=== PATIENT | female | born 1975 | race Caucasian/White ===

== ENCOUNTER → 2020-02-16 | Outpatient (CLI) | payer OTHER ==
--- NOTE | 2020-02-16 11:06 | MR ---
EXAMINATION TYPE: MR lumbar spine wo/w con DATE OF EXAM: 02/16/2020 COMPARISON: 09/17/2015 HISTORY: Low back pain into legs CONTRAST: 6.5 mL of gadolinium this TECHNIQUE: T1 and T2 axial and sagittal, postcontrast T1 axial and sagittal images of the lumbar spi ne are submitted. FINDINGS: There is no abnormal signal seen within the visualized spinal cord or paraspinal soft tissu es. Alignment is anatomic and there are no compression deformities. Indeterminate subcentimeter bilat eral renal lesions greater on the right. Stable nonspecific mild heterogeneity to the marrow signal d iffusely. At L1-2 there is no disc herniation or canal stenosis. No foraminal encroachment. At L2-3 there is no disc herniation or canal stenosis. No foraminal encroachment. Mild hypertrophic c hange of the facets. At L3-4 there is broad-based disc bulging with mild effacement of thecal sac. Mild hypertrophic lunsford e of the ligamentum flavum and facets. No Canal stenosis. Neural foramina remain patent. At L4-5 there is broad-based disc central bulging with mild effacement of thecal sac. Advanced facet arthropathy and ligamentum flavum hypertrophy with mild bilateral foraminal encroachment. Borderline canal stenosis. At L5-S1 there is no evidence of canal stenosis, disc herniation or foraminal encroachment. IMPRESSION: 1. Broad-based disc bulging centrally L3-L4 and L4-L5 with mild effacement of thecal sac. Facet arthr opathy and ligamentum flavum hypertrophy at both levels with borderline canal stenosis at L4-L5 and m ild bilateral foraminal encroachment. Mild progression from prior exam. 2. Indeterminate subcentimeter right renal lesion. Follow-up ultrasound recommended. 3. Tiny linear area of signal within the distal spinal cord may represent a prominent central canal. Minimal syrinx not excluded, findings stable from prior exam.
== END | disposition home or self-care (01) ==
LOC: RADMRIMAIN 09:30
PROVIDERS: ATTEND Psychiatry & Neurology Neurology
DX: M48.061 Spinal stenosis, lumbar region without neurogenic claudication (principal); M51.16 Intervertebral disc disorders with radiculopathy, lumbar region; M47.26 Other spondylosis with radiculopathy, lumbar region; M46.06 Spinal enthesopathy, lumbar region; R93.7 Abnormal findings on diagnostic imaging of other parts of musculoskeletal system
CPT/HCPCS: 72158

== ENCOUNTER 2020-04-05 08:43 | Day surgery (SDC) | payer OTHER ==
[~2020-04-05 08:43] MED LIST: LACTATED RINGERS 1,000 ML IV SCH
[2020-04-05 09:34] VITALS: RESP 16; TEMP 98.2
[2020-04-05] MEDS ORDERED: LIDOCAINE 1% (10MG/ML) FOR IV START INTRADERMA ONE (09:40)
[2020-04-05] MEDS ORDERED: methylPREDNISolone ACETATE 40 MG/ML 1 ML VIAL ONE (10:49)
[2020-04-05] MEDS ORDERED: ROPIVACAINE 5MG/ML 20ML VIAL ONE (10:49)
[2020-04-05] MEDS ORDERED: MIDAZOLAM 2 MG/2 ML VIAL ONE (10:49)
[2020-04-05] MEDS ORDERED: fentaNYL (PF) 50 MCG/ML 2 ML AMP ONE (10:49)
--- NOTE | 2020-04-05 11:04 | P.PCN ---
Date of Procedure: 04/05/20 Procedure(s) Performed: Procedure= Right sacroiliac joints steroid injection under fluoroscopy guidance (fluoroscopy image stored on file in the radiology Department ) Preoperative diagnosis= 1-sacroiliitis 2-lumbar degenerative disc disease Postoperative diagnosis=Same as preop Diagnosis . Complication = none Condition= stable Anesthesia= moderate sedation with intravenous Versed 2 mg , and fentanyl 100 micrograms . Indication for the procedure= patient complaining of low back pain , examination was positive for severe tenderness over the sacroiliac joints bilaterally and patient diagnosed with sacroiliitis, for this reason he/ she was good candidate for sacroiliac joint steroid injection. Description of the procedure= procedure risk and benefits discussed with the patient, including but not limited, risk of infection and bleeding, and ALLERGIC reaction to the medication and not complete pain relief and patient agreed with the preceding patient taken to the operating room, placed in prone position or standard monitors applied to the patient then after induction of anesthesia back prepped with chlorhexidine 3 times , Then under strict sterile technique, I did the right sacroiliac joint the which was identified under fluoroscopy guidance been local infiltration of the skin and subcu interstitial with lidocaine 1% then 22-gauge Quincke Needle advanced slowly under fluoroscopy and placed in the right sacroiliac joint needle placement confirmed with AP and oblique and lateral view and after appropriate needle placement confirmed and after negative aspiration, or heme , then Ropivacaine 0.5% 3 mL, and 80 mg of Depo-Medrol mixed together and injected in the right sacroiliac joint after negative aspiration patient tolerated the procedure well without any complication.
[2020-04-05] MEDS ORDERED: IV FLUID CONTINUATION 1,000 ML IV ONE (11:07)
[2020-04-05 11:27] VITALS: BP 129/79; PULSE 80
--- NOTE | 2020-04-05 11:48 | FL ---
EXAMINATION TYPE: FL guided pain mgmt statistic DATE OF EXAM: 04/05/2020 CLINICAL HISTORY: Right sacroiliac joint pain. TECHNIQUE: Fluoroscopy. COMPARISON: None. FINDINGS: Fluoroscopic guidance was provided during pain relief procedure performed by Dr. Javier . A total of 1 seconds of fluoroscopic time was utilized during the procedure and 1 spot images are acquired. Single limited acquired shows needle localization at level of right sacroiliac joint infer iorly. IMPRESSION: As Above.
== END 2020-04-05 11:45 | disposition home or self-care (01) ==
LOC: ORPAIN 08:43
PROVIDERS: ATTEND Specialist
DX: M46.1 Sacroiliitis, not elsewhere classified (principal); M51.36 Other intervertebral disc degeneration, lumbar region; Z88.5 Allergy status to narcotic agent
CPT/HCPCS: 81025; J2250; J1030; J3010; J2795; G0260; 27096

== ENCOUNTER → 2020-05-11 | Outpatient (CLI) | payer OTHER ==
[2020-05-11 08:26] VITALS: BP 131/84; PULSE 97; RESP 18; TEMP 97.8
--- NOTE | 2020-05-11 08:41 | P.PN ---
Subjective Progress Note Date: 05/11/20 Courtney is a 45 year old female presents for follow-up today secondary to right- sided low back pain. She reports axial low back pain along the right buttock and upper thigh. She recently had an SI joint injection about 6 weeks ago and reports excellent relief. She reports the pain began to come back over the last 1-2 weeks. She did have a difficult standing for long periods of time and bending over at work secondary to the pain. She's been working 8-12 hour shifts and is having difficulty standing for longer than 8 hours. She denies any side effects from the injection. She denies any significant radicular symptoms into the legs. She denies any weakness in legs. Denies any bowel or bladder incontinence, chest pain, shortness of breath Objective - Vital Signs Vital signs: Vital Signs Temp 97.8 F 05/11/20 08:22 Pulse 97 05/11/20 08:22 Resp 18 05/11/20 08:22 BP 131/84 05/11/20 08:22 Pulse Ox 100 05/11/20 08:22 Intake & Output 05/10/20 05/11/20 05/11/20 18:59 06:59 18:59 Weight 64.41 kg - Exam General: Awake and alert oriented 3 no distress Respiratory exam: No audible wheezing no accessory muscle usage Cervical spine: Normal alignment, Spurling's negative, facet loading negative, Corporate Trust Officer strength is 5/5, pack negative Lumbar spine: Loss of lumbar lordosis, normal alignment, tender to palpation over bilateral paraspinal muscles, facet loading is positive bilaterally. Straight leg raise is negative. Limited range of motion due to pain with flexion, extension and side bending. Sacroiliac joints: Tender palpation of the right SI joint, gains on's test positive, Isaías's test positive Neuro exam: Normal sensation in bilateral upper extremities, deep tendon reflexes are 2+ bilateral upper extremities. Normal sensation in bilateral lower extremities. Deep tendon reflexes are 2+ in lower extremities Psych exam: Cooperative, appropriate mood Assessment and Plan Assessment: #1 sacroiliitis Plan: After discussion with the patient and examination the patient, believe she would benefit from a second SI joint injection. She may benefit from long-term radio frequency ablation of the joint. She may also benefit from SI joint fusion in the future if the joint injections are not lasting long. I discussed this with the patient. She'll follow-up with Dr. Goodman jolly as well. We'll schedule her for a second injection to be done as soon as possible. I will also give her work restriction she can work only 8 hours in a day for the next few months time. The note will on 08/11/2020 I have spent 29 minutes on patient care today. The time was used to review the medical records including relevant urine studies and Prescription history (MAPs), review of the available imaging, evaluation and examination of the patient, coordination of care with the medical staff and if applicable referring physicians, as well as creation of the medical record.
== END ==
LOC: PNWHC3 08:04
PROVIDERS: ATTEND Hospitalist
DX: M46.1 Sacroiliitis, not elsewhere classified (principal)
CPT/HCPCS: 99211

== ENCOUNTER 2020-05-31 13:02 | Day surgery (SDC) | payer OTHER ==
[2020-05-26 11:56] VITALS: BMI 26.8
[2020-05-31 13:16] VITALS: TEMP 98.3
[2020-05-31] MEDS ORDERED: methylPREDNISolone ACETATE 40 MG/ML 1 ML VIAL ONE (13:23)
[2020-05-31] MEDS ORDERED: ROPIVACAINE 5MG/ML 20ML VIAL ONE (13:23)
--- NOTE | 2020-05-31 13:36 | P.PCN ---
Date of Procedure: 05/31/20 Procedure(s) Performed: Procedure= Right sacroiliac joints steroid injection under fluoroscopy guidance (fluoroscopy image stored on file in the radiology Department ) Preoperative diagnosis= 1-sacroiliitis 2-lumbar degenerative disc disease Postoperative diagnosis=Same as preop Diagnosis . Complication = none Condition= stable Anesthesia= local andopivacaine 0.5 % 3 ml only. Indication for the procedure= patient complaining of low back pain , examination was positive for severe tenderness over the right sacroiliac joints bilaterally and patient diagnosed with sacroiliitis, for this reason she was good candidate for sacroiliac joint steroid injection. Description of the procedure= procedure risk and benefits discussed with the patient, including but not limited, risk of infection and bleeding, and ALLERGIC reaction to the medication and not complete pain relief and patient agreed with the preceding patient taken to the operating room, placed in prone position or standard monitors applied to the patient then after induction of anesthesia back prepped with chlorhexidine 3 times , Then under strict sterile technique, I did the right sacroiliac joint the which was identified under fluoroscopy guidance been local infiltration of the skin and subcu interstitial with lidocaine 1% then 25-gauge Quincke Needle advanced slowly under fluoroscopy and placed in the right sacroiliac joint needle placement confirmed with AP and oblique and lateral view and after appropriate needle placement confirmed and after negative aspiration, or heme , then Ropivacaine 0.5% 4 mL, and 40 mg of Depo-Medrol mixed together and injected in the right sacroiliac joint after negative aspiration patient tolerated the procedure well without any complication.
[2020-05-31 13:40] VITALS: BP 161/86; PULSE 99; RESP 20
--- NOTE | 2020-05-31 15:39 | FL ---
EXAMINATION TYPE: FL guided pain mgmt statistic DATE OF EXAM: 05/31/2020 CLINICAL HISTORY: Right sacroiliac joint pain. TECHNIQUE: Fluoroscopy. COMPARISON: None. FINDINGS: Fluoroscopic guidance was provided during right sacroiliac joint pain relief procedure per formed by Dr. Javier . A total of 1 seconds of fluoroscopic time was utilized during the procedure and 1 spot images are acquired. Single image acquired shows needle localization at inferior right s acroiliac joint level. IMPRESSION: As Above.
== END 2020-05-31 13:52 | disposition home or self-care (01) ==
LOC: ORPAIN 13:02
PROVIDERS: ATTEND Specialist
DX: M46.1 Sacroiliitis, not elsewhere classified (principal); M53.3 Sacrococcygeal disorders, not elsewhere classified; Z88.5 Allergy status to narcotic agent
CPT/HCPCS: 81025; J1030; J2795; G0260; 27096

== ENCOUNTER → 2020-08-01 | Outpatient (CLI) | payer OTHER | END | disposition home or self-care (01) | LOC: LABPAT 13:31 | PROVIDERS: ATTEND Orthopaedic Surgery | DX: Z01.812 Encounter for preprocedural laboratory examination (principal); M46.1 Sacroiliitis, not elsewhere classified | CPT/HCPCS: 87070 ==

== ENCOUNTER 2020-11-01 09:51 | Day surgery (SDC) | payer OTHER ==
[2020-10-28 15:12] VITALS: BMI 26.6
[2020-11-01 10:21] VITALS: RESP 16; TEMP 97.3
[2020-11-01] MEDS: LACTATED RINGERS 1,000 ML IV SCH ×2 (10:25→10:53)
[2020-11-01] MEDS ORDERED: LIDOCAINE 1% (10MG/ML) FOR IV START INTRADERMA ONE (10:25)
[2020-11-01] MEDS ORDERED: fentaNYL (PF) 50 MCG/ML 2 ML AMP ONE (10:53)
[2020-11-01] MEDS ORDERED: MIDAZOLAM 2 MG/2 ML VIAL ONE (10:53)
[2020-11-01] MEDS ORDERED: TRIAMCINOLONE ACETONIDE 40 MG/ML 1 ML VIAL ONE (10:53)
[2020-11-01] MEDS ORDERED: ROPIVACAINE 5MG/ML 20ML VIAL ONE (10:53)
--- NOTE | 2020-11-01 11:12 | P.PCN ---
Date of Procedure: 11/01/20 Surgeon: Otto Kline Pathology: none sent Condition: stable Disposition: PACU Description of Procedure: PREOPERATIVE DIAGNOSIS : 1- Lumbar spondylosis with Facet Arthropathy without myelopathy . 2- Lumber degenerative disc disease POSTOPERATIVE DIAGNOSIS: 1- Lumbar spondylosis with Facet Arthropathy without myelopathy . 2- Lumber degenerative disc disease PROCEDURE: Diagnostic bilateral L5-S1 medial branch block under fluoroscopy Physician: Otto Kline MD ANESTHESIA: Local with 1% lidocaine; IV moderate conscious sedation with Versed 2 mg and fentanyl 100 mcgs . EBL: Negligible COMPLICATION: None. PROCEDURE INDICATION: Chronic low back pain secondary to Facet arthropathy unresponsive to conservative treatment. PROCEDURE DESCRIPTION: the patient was seen and identified in the preop holding area , risks and benefits and possible complications of the procedure and alternatives were discussed with the patient, and the patient agreed to proceed with the procedure and signed the consent. IV was started and vital signs monitored during the procedure and fluoroscopy was used to maximize the benefit and accuracy of the needle placement, sedation was given to decrease patient anxiety, patient was taken to the procedure room and placed in prone position vital signs monitored. The patient was brought into the procedure room and placed in prone position. Skin was prepped with Chloraprep and draped in a sterile manner. Lidocaine 1% was used to numb the skin up at the target points that were chosen as follows: at the L5-S1 level which corresponds to the dorsal ramus of L5 the target points were at the superior medial aspect of the sacral ala on each side of the spine on the AP view of fluoroscopy, and for the L4 medial branches the target points were the connection between the transverse process and the superior articular process of L5 on the oblique views of fluoroscopy. I used 22-gauge 3-1/2 inch Quincke spinal needles for this procedure and after contacting bone at the target points mentioned above I injected 1 mL of a mixture of Kenalog 40 mg +3 MLS of Ropivacaine 0.5% PF . Patient tolerated procedure well. At the end of the procedure the needles removed and a bandage applied after the skin was cleaned the cleaning solution. patient was then taken to the recovery room in stable condition and monitored in the recovery room for 20-30 minutes and discharged home in stable condition after discharge criteria met . A copy of the needle placement picture was saved to the C-arm machine.
[2020-11-01] MEDS ORDERED: IV FLUID CONTINUATION 500 ML IV ONE ×2 (11:13)
[2020-11-01 11:27] VITALS: BP 117/75; PULSE 82
--- NOTE | 2020-11-01 14:19 | FL ---
Fluoroscopy INDICATION: Pain FINDINGS: Fluoroscopy time: 5 seconds. Images obtained: 3. IMPRESSIONS: 1. Documentation of fluoroscopy.
== END 2020-11-01 11:42 | disposition home or self-care (01) ==
LOC: ORPAIN 09:51
PROVIDERS: ATTEND Anesthesiology
DX: G89.29 Other chronic pain (principal); M47.816 Spondylosis without myelopathy or radiculopathy, lumbar region; Z88.8 Allergy status to other drugs, medicaments and biological substances
CPT/HCPCS: 81025; 64493; J2250; J3301; J3010; J2795; G0260; 27096; 99152

== ENCOUNTER → 2020-11-30 | Outpatient (CLI) | payer OTHER ==
[2020-11-30 10:40] VITALS: BP 125/80; PULSE 94; RESP 18; TEMP 98.5
--- NOTE | 2020-11-30 11:10 | P.PN ---
Subjective Progress Note Date: 11/30/20 This is for visits for this 45 years old female with a chronic history of severe low back pain, patient diagnosed with lumbar spondylosis with lumbar facet arthropathy, recently we have done diagnostic medial branch block lumbar area at L3, L4, L5, Bilaterally ,patient reported that her pain improved significantly after the block her VAS before the block was 8/10, dropped to 2/10 immediately after the block and the pain relief lasted more than one week, the pain is constant and increases with any activity interference with her quality of life, the patient denies any motor or sensory deficits Objective - Vital Signs Vital signs: Vital Signs Temp 98.5 F 11/30/20 10:34 Pulse 94 11/30/20 10:34 Resp 18 11/30/20 10:34 BP 125/80 11/30/20 10:34 Pulse Ox 97 11/30/20 10:34 Intake & Output 11/29/20 11/30/20 11/30/20 18:59 06:59 18:59 Weight 64.41 kg - Exam Physical Examinations : -Constitutiona : Cooperative , not in acute distress . -HEENT : nech : supple , no Lymphadenopathy , normal thyroid size . : eyes : no ptosis , no icterus, no photophobia . - neurologic : Cranial nerve II to XII intact , no focal neurological deffecit . -psychatric : alert , oriented X 3 , appropriate affect , intact judgment and insight . -Lymphatic : no Lymphadenopathy . - musculoskeltal : Lumber spine moter stegnth lower extremities ,thigh and legs 5/5 Right side , 5/5 Left side deep tendon reflexes : normal Knee Jerk , normal ankle Jerk lumber facet Loading Test =positive Right , positive Left Range of motion of the lumbar spine Flexion 30 degrees, extension 10 degrees strait leg raising test = positive at degree Fabere test= positive Right , and positive LT . tenderness over the Sacroiliac joint on the Right , and Left sides Assessment and Plan Plan: Assessment and plan=1-lumbar spondylosis with lumbar facet arthropathy without myelopathy. 2-sacroiliitis. Patient had excellent pain relief after diagnostic medial branch block lumbar area, she will be good candidate to have a repeat diagnostic medial branch block lumbar area at L3, L4, L5, bilaterally and benefits possibly proceed with RFA - PQRS measures = - Patient's medications are documented in the chart. -Tobacco use is negative and counseling.Given. -Patient's has not received pneumococcal vaccine. -Advanced care planning discussed, patient not eligible. -Opiate contract not signed. -Pain positive and follow-up visit/procedure is scheduled. -Patient's blood pressure measured [ 125/80 ] , and documented in the record ,and patient will follow up with the primary care. -Patient's weight was measured and body mass index [ 26.8 ] above the normal limits and counseling was done. and patient instructed to follow-up with the primary care physician. -Patient was not identified as an unhealthy alcohol user Time with Patient: Less than 30
== END ==
LOC: PNWHC3 10:06
PROVIDERS: ATTEND Specialist
DX: M47.816 Spondylosis without myelopathy or radiculopathy, lumbar region (principal); M46.1 Sacroiliitis, not elsewhere classified; Z88.5 Allergy status to narcotic agent
CPT/HCPCS: 99211

== ENCOUNTER → 2021-06-07 | Outpatient (CLI) | payer OTHER ==
[2021-06-07 14:12] VITALS: BP 139/73; PULSE 97; RESP 18
--- NOTE | 2021-06-07 14:47 | P.PN ---
Subjective Progress Note Date: 06/07/21 Principal diagnosis: A 46 yr old female with a history of severe and chronic low back pain secondary to lumbar degenerative disc diseases and lumbar spondylosis with facet arthropathy presents today for evaluation. Pain level is currently an 8 out of 10 in intensity, localized in the lower aspect of her lumbar spine and tailbone region, sharp, tingling sensation with right lower extremity sharp pain. Pain is provoked by sitting for periods of 15 minutes, bending or lifting. Pain is alleviated with medications, topicals, injections, alternating ice and heat, physical therapy in the past, chiropractic treatments in February 2021 which made the pain worse, home exercise regimen though she has not been current with them due to to recent rib fractures, Epsom salt soaks baths, repositioning and rest. Interventional pain procedures completed include BL SI joint injections, FB/MB L5-S1 x 1. Patient is currently on Naproxen. Castaner (4 days supply from the [facility]) Patient denies any side effects of the medication(s), denies excessive drowsiness or sleepiness, denies suicidal ideation and reports that the current pain medication is helping to control the pain and improve activities of daily living. Patient denies any motor or sensory deficits. Patient denies any fever or night sweats, denies any change in the bowel movements or urination. Physical Examination: -Constitutional: Cooperative. Not in acute distress . -HEENT: Neck is supple. No lymphadenopathy. No thyromegaly. Normal thyroid size. Eyes: No ptosis , no icterus, no photophobia. ENT: No auditory deficits. Normal oropharynx. No Thrush. - Respiratory: Chest clear to auscultations bilaterally. No wheezing. No rhonchi. - Cardiovascular: Regular rate and rhythm. S1 / S2 , no S3 , no S4. - Gastrointestinal: Abdomen soft no tenderness. Bowel sounds positive in all four quadrants. No organomegaly. - Genitourinary: Deferred. - Neurologic: Cranial nerve II to XII intact. No focal neurological deficits. - Psychatric: Alert & oriented x 3. Matching mood & appropriate affect. Judgment and insight intact. - Lymphatic: No Lymphadenopathy. - Musculoskeletal: Cervical spine: Muscle bulk/ tone/ strength in the bilateral upper extremities normal. Facet loading test cervical area positive. Lumbar spine: Motor bulk/ tone/ strength lower extremities , thigh and legs : 5/5 Deep tendon reflexes : Normal Knee Jerk. Normal Ankle Jerk . Vertebral body tenderness to palpation over Lumbar Facet Loading Test positive Straight Leg Raise: positive at 30 degrees right side/ left side Gaenslen's Test positive Sacral spine : Severe tenderness over the Sacroiliac joint: right side / left side Range of motion: Flexion of the lumbar spine <60 degrees Range of motion: Extension of the lumbar spine <20 degrees Gaenslen's Test positive Isaías test: positive right side > left side Assessment and plan: Chronic low back pain secondary to lumbar degenerative disc disease , lumbar spondylosis with facet arthropathy without myelopathy Recommendation of bilateral SI joint injection. May need a series of injections to obtain optimal and sufficient pain relief. Risks, benefits of procedure discussed and patient verbalized understanding. Denies anticoagulant use or medical history of diabetes. Chronic and current use of high-risk medication (Opioids). The patient was counseled about risk of opioid use, psychological risk associated with opioids and was orally counseled to not overuse , divert or sell medications. Pt is to store medication in a safe location. The patient is counseled against driving while using narcotic medications and also not to use alcohol or any illicit recreational drugs. Patient verbalized understanding that the lack of compliance will result in failure to renew narcotic prescription(s) as well as possible discharge from the clinic Diagnoses, prognosis and treatment options including but not limited to physical therapy, surgical interventions, interventional therapies and medication management including narcotics and adjuvant medication were discussed. All patient questions answered MAPS reviewed and it was appropriate. Prescription for Castaner 5/325mg q4h prn pain #15 no refills I have spent 31 minutes on patient care today. Dr Javier was available by phone for the evaluation of this patient. The time was used to review the medical records including relevant urine studies and Prescription history (MAPs), review of the available imaging, evaluation and examination of the patient, coordination of care with the medical staff and if applicable referring physicians, as well as creation of the medical record Objective - Vital Signs Vital signs: Vital Signs Temp Pulse 97 06/07/21 14:06 Resp 18 06/07/21 14:06 BP 139/73 06/07/21 14:06 Pulse Ox 100 06/07/21 14:06 Intake & Output 06/06/21 06/07/21 06/07/21 18:59 06:59 18:59 Weight 72.575 kg PQRS Measure Charge Sheet Mode of Arrival: Ambulatory - Pain Location Lower Back Non-Pharmacological Interventions: Chiropractic Treatment, Heat, Home Exercise, Ice, Inactivity, Physical Therapy, Position/Reposition, Relaxation Technique, Stretching Pharmacological Interventions: Block, PRN Medication, Topical Medication PQRS Narrative: Smoking Status Never smoker Narcotic Agreement Date Signed 02/26/14 Blood Pressure 139/73 Pain Intensity [Lower Back] 8 Scale Used Numeric (1 - 10) Hx Alcohol Use (MH) No Home Medications: Ambulatory Orders Sertraline [Zoloft] 200 mg PO DAILY 02/02/14 Albuterol Inhaler (Mhu) [Ventolin Inhaler] 2 puff INHALATION RT-Q6H PRN 02/25/14 Montelukast [Singulair] 10 mg PO HS 05/25/15 Albuterol Nebulized [Ventolin Nebulized] 2.5 mg INHALATION RT-TID PRN 06/22/15 Lurasidone [Latuda] 80 mg PO DAILY 11/09/15 polyethylene glycoL 3350 [Miralax] 17 gm PO DAILY PRN 11/09/15 Pramipexole [Mirapex] 0.125 mg PO TID 04/05/20 QUEtiapine FUMARATE 200 mg PO HS 04/05/20 traZODone HCL 100 mg PO HS 04/05/20 Acetaminophen [Tylenol Extra Strength] 500 mg PO Q6H PRN 08/04/20 Fluticasone Propionate [Flovent Hfa 220 mcg] 2 puff INHALATION BID 08/04/20 Ibuprofen 800 mg PO Q8H PRN 08/04/20 Propranolol [Inderal] 40 mg PO BID 08/04/20 buPROPion XL [Wellbutrin Xl] 300 mg PO DAILY 08/04/20 busPIRone HCL [Buspar] 7.5 mg PO HS 08/04/20 valACYclovir [Valtrex] 500 mg PO DAILY PRN 08/04/20 HYDROcodone/APAP 5-325MG [Castaner 5-325] 1 tab PO Q4HR PRN 3 Days #15 tab 06/07/21
== END ==
LOC: PNWHC3 13:41
PROVIDERS: ATTEND Specialist
DX: M51.36 Other intervertebral disc degeneration, lumbar region (principal); M47.816 Spondylosis without myelopathy or radiculopathy, lumbar region; G89.29 Other chronic pain; Z79.891 Long term (current) use of opiate analgesic; Z88.5 Allergy status to narcotic agent
CPT/HCPCS: 99211

== ENCOUNTER → 2021-11-23 | Outpatient (CLI) | payer OTHER ==
[2021-11-23 11:31] VITALS: BP 132/86; PULSE 95; RESP 18; TEMP 98
--- NOTE | 2021-11-23 14:55 | P.PAINPG ---
PQRS Measure Charge Sheet Comment: A 46 yr old female with a history of severe and chronic low back pain secondary to lumbar degenerative disc diseases and lumbar spondylosis with facet arthropathy without myelopathy presents today for LBP. Pain level is currently at 8/10 in intensity, constant, R lower lumbar spine, throbbing in character w shooting towards RLE. Pain is provoked by standing & lifting. Pain is alleviated with PT integrated w massage in the past, chiropractic treatments in the past which provoked pain, heat, hot baths, medications (Motrin, Mobic, Tramadol), use of TENS unit, repositioning and rest. I had reviewed the terms of narcotic medications including refraining from cannabis (although legal in [place], it is not legal on the federal level), alcohol and illicit drugs. I also informed pt that we will do random drug testing so she needs to test positive for medications prescribed and negative for medications not prescribed. Pt informed me that she does not do street drugs and expressed gratitude for receiving medication. After leaving exam room, pt informed MA (as she was collecting UDS) that she may test positive for cocaine as she tried it a few days ago. She also called the clinic a short while later and informed MA that she had edibles and may test positive for THC. This wasn't until after I e scribed Tylenol #4 #60 w 1 RF. I called pharmacy and was made aware she already picked up her script so I cancelled the 2nd mo script until we receive UDS results. Interventional pain procedures completed include BL MBB L5-S1 x1 Patient is currently on Mobic, Tramadol, Motrin Patient denies any side effects of the medication(s), denies excessive drowsiness or sleepiness, denies suicidal ideation and reports that the current pain medication is helping to control the pain and improve activities of daily living. Patient denies any motor or sensory deficits. Patient denies any fever or night sweats, denies any change in the bowel movements or urination. Physical Examination: -Constitutional: Cooperative. Not in acute distress . - Neurologic: Cranial nerve II to XII intact. No focal neurological defi cits. - Psychatric: Alert & oriented x 3. Matching mood & appropriate affect. Judgment and insight intact. - Musculoskeletal: Cervical spine: Muscle bulk/ tone/ strength in the bilateral upper extremities normal Vertebral body tenderness to palpation over Spurling test positive Distraction test positive Facet loading test positive Thoracic spine Muscle bulk / tone/ strength in the bilateral paraspinal muscles normal Vertebral body tender to palpation over Facet loading test positive Lumbar spine: Motor bulk/ tone/ strength lower extremities , thigh and legs : 5/5 Deep tendon reflexes : Normal Knee Jerk. Normal Ankle Jerk . Vertebral body tenderness to palpation over Lumbar Facet Loading Test positive R L4-L5, L5-S1 2 jump reflex Straight Leg Raise: positive at 30 degrees right side/ left side Gaenslen's Test positive Sacral spine : Severe tenderness over the Sacroiliac joint: right side / left side Range of motion: Flexion of the lumbar spine <60 degrees Range of motion: Extension of the lumbar spine <20 degrees Gaenslen's Test positive Daniel's Test positive Isaías test: positive right side / left side Thigh Thrust Test Sacral Thrust Test Assessment and plan: Chronic low back pain secondary to lumbar degenerative disc disease , lumbar spondylosis with facet arthropathy without myelopathy Recommenadtion of R MBB L4-L5, L5-S1. May need a series of injections, up until RFA, for optimal pain relief. Risks, benefits of procedure discussed and pt verbalized understanding. Denies anticoagulant use or medical history of diabetes. Chronic and current use of high-risk medication (Opioids). The patient was counseled about risk of opioid use, psychological risk associated with opioids and was orally counseled to not overuse , divert or sell medications. Pt is to store medication in a safe location. The patient is counseled against driving while using narcotic medications and also not to use alcohol or any illicit recreational drugs. Patient verbalized understanding that the lack of compliance will result in failure to renew narcotic prescription(s) as well as possible discharge from the clinic Diagnoses, prognosis and treatment options including but not limited to physical therapy, surgical interventions, interventional therapies and medication management including narcotics and adjuvant medication were discussed. All patient questions answered MAPS reviewed and it was appropriate. Prescription refill for Tylenol #4 #60 w NO REFILL. Narcotic agreement signed today 11/23/21. UDS collected today 11/23/21. I have spent less than 30 minutes on patient care today. Dr Javier was available by phone for the evaluation of this patient. The time was used to review the medical records including relevant urine studies and Prescription history (MAPs), review of the available imaging, evaluation and examination of the patient, coordination of care with the medical staff and if applicable referring physicians, as well as creation of the medical record - Pain Location Lower Back Non-Pharmacological Interventions: Chiropractic Treatment, Heat, Physical Therapy, Position/Reposition, Stretching, TENS Unit Pharmacological Interventions: PRN Medication PQRS Narrative: Smoking Status Never smoker Narcotic Agreement Date Signed 02/26/14 Hx Alcohol Use (MH) No Home Medications: Ambulatory Orders Sertraline [Zoloft] 200 mg PO DAILY 02/02/14 Albuterol Inhaler [Ventolin Inhaler] 2 puff INHALATION RT-Q6H PRN 02/25/14 Montelukast [Singulair] 10 mg PO HS 05/25/15 Albuterol Nebulized [Ventolin Nebulized] 2.5 mg INHALATION RT-TID PRN 06/22/15 Lurasidone [Latuda] 80 mg PO DAILY 11/09/15 polyethylene glycoL 3350 [Miralax] 17 gm PO DAILY PRN 11/09/15 Pramipexole [Mirapex] 0.125 mg PO TID 04/05/20 QUEtiapine FUMARATE 200 mg PO HS 04/05/20 traZODone HCL 100 mg PO HS 04/05/20 Acetaminophen [Tylenol Extra Strength] 500 mg PO Q6H PRN 08/04/20 Fluticasone Propionate [Flovent Hfa 220 mcg] 2 puff INHALATION BID 08/04/20 Ibuprofen 800 mg PO Q8H PRN 08/04/20 Propranolol [Inderal] 40 mg PO BID 08/04/20 buPROPion XL [Wellbutrin Xl] 300 mg PO DAILY 08/04/20 busPIRone HCL [Buspar] 7.5 mg PO HS 08/04/20 valACYclovir HCL [Valtrex] 500 mg PO DAILY PRN 08/04/20 Acetaminophen with Codeine [Tylenol #4 Tablet] 1 tab PO Q12H PRN 30 Days #60 tab 11/23/21 Acetaminophen with Codeine [Tylenol #4 Tablet] 1 tab PO Q12H PRN 30 Days #60 tab 11/23/21 Controlled Substance Measures - Controlled Substance Measures Is patient prescribed a controlled substance at discharge?: Yes When asked, does pt state using other controlled substances?: Yes If prescribed controlled substance>3 days was MAPS reviewed?: Yes If Rx opioid, was Start Talking consent form obtained?: Yes Was information provided regarding opioid addiction?: Yes
== END ==
LOC: PNWHC3 10:46
PROVIDERS: ATTEND Specialist
DX: M51.36 Other intervertebral disc degeneration, lumbar region (principal); M47.816 Spondylosis without myelopathy or radiculopathy, lumbar region; G89.29 Other chronic pain; Z88.8 Allergy status to other drugs, medicaments and biological substances; Z51.81 Encounter for therapeutic drug level monitoring
CPT/HCPCS: 80307; G0482; G0463; 99211